=== PATIENT | female | born 1970 | race Caucasian/White ===

== ENCOUNTER → 2018-07-21 16:35 | Outpatient (CLI) | payer BC, SELFPAY ==
[2018-07-21 17:56] LABS: Absolute Lymphocyte Count 3.36 X10^3/ul (0.83-4.51); Absolute Neutrophil Count 5.8 X10^3/uL (2.0-7.7); Basophil# 0.05 X10^3/uL; Basophil% 0.5 % (0-1); Eosinophil# 0.34 X10^3/uL; Eosinophils% 3.4 % (0-5); Hematocrit 38.2 % (37-47); Hemoglobin 12.5 g/dl (12.0-15.0); Lymphocyte # 3.36 X10^3/ul (4.0); Lymphocyte % 33.8 % (19-41); Mean Corp Hgb Conc 32.7 g/gl (32-36); Mean Corpuscular Hgb 26.4 pg (27.0-32.0); Mean Corpuscular Volume 80.8 fL (81-99); Mean Platelet Vol. 10.2 fl (6.2-12.0); Monocyte# 0.42 X10^3/uL; Monocyte% 4.2 % (0-10); Neutrophil # 5.76 X10^3/uL (2.7-7.7); POSITIVE COUNT NO; POSITIVE DIFFERENTIAL NO; POSITIVE MORPHOLOGY NO; Platelet Count 319 K/mm3 (150-450); RBC Distribution Width CV 14.6 % (11.6-14.6); RBC Distribution Width SD 42.8 fl (35.1-43.9); Red Blood Count 4.73 M/mm3 (4.2-5.4); White Blood Count 9.9 K/mm3 (4.4-11.0)
[2018-07-21 17:59] LABS: Rheumatoid Factor < 10.0 IU/mL (<15)
[2018-07-21 18:03] LABS: Erythrocyte Sedimentation Rate 51 mm/hr (0-20)
[2018-07-23 14:07] LABS: SJOGREN'S Anti-SS-A test < 0.2 AI (0.0-0.9); SJOGREN'S Anti-SS-B test < 0.2 AI (0.0-0.9)
[2018-07-24 13:17] LABS: ANTINUCLEAR ANTIBODIES DIRECT Negative (Negative)
[2018-07-28 12:08] LABS: Angiotensin Convert Enzyme 42 U/L (14-82); Cytoplasmic Ab (C-ANCA) <1:20 titer (Neg:<1:20)
[2018-07-28 13:18] LABS: Anti-Thyroglobulin AB 3.7 IU/mL (0.0-0.9); Perinuclear Ab (P-ANCA) <1:20 titer (Neg:<1:20); Thyroglobulin RIA 3.9 ng/mL (.); Thyroid Peroxidase AB 383 IU/mL (0-34)
== END ==
PROVIDERS: Family Provider Nurse Practitioner Family; PCP Nurse Practitioner Family; Referring Provider Otolaryngology; Visit Provider Otolaryngology
DX: E04.1 Nontoxic single thyroid nodule (principal); I78.1 Nevus, non-neoplastic
CPT/HCPCS: 36415; 82164; 84432; 85025; 85652; 86038; 86235; 86256; 86376; 86431; 86800